=== PATIENT | male | born 1940 | race Caucasian/White ===

== ENCOUNTER 2017-01-09 09:05 | Day surgery (SDC) | payer MEDICARE, OTHER ==
--- NOTE | ~2017-01-09 | EGD ---
EGD REPORT [facility] [address] [address] NAME: NATTY CONTRERAS : [birth year] STATUS : REG [facility]#: [id number] AGE: 76 ADM/REG DATE : 01/09/17 MR#: [id number] REPORT SERV DATE: 01/09/17 DICTATED BY: FRANCESCO SKINNER DATE: 01/09/17 REPORT STATUS : Draft TRANSCRIBED BY: [employer] DATE: 01/09/17 [facility] Center Patient Name: Natty Contreras Date of : 1940 Attending MD: FRANCESCO SKINNER MD Procedure Date No Time: 01/09/2017 Procedure: Colonoscopy Indications: High risk colon cancer surveillance: Personal history of colonic polyps Referring MD: NASREEN MOFFETT MD Medicines: as per anesthesia Complications: No immediate complications. Procedure: Pre-Anesthesia Assessment: - ASA Grade Assessment: III - A patient with severe systemic disease. After I obtained informed consent, the scope was passed under direct vision. Throughout the procedure, the patient's blood pressure, pulse, and oxygen saturations were monitored continuously. The PCF [id number] was introduced through the anus and advanced to the cecum, identified by appendiceal orifice and ileocecal valve. The colonoscopy was performed without difficulty. The patient tolerated the procedure. The quality of the bowel preparation was adequate to identify polyps. Findings: The perianal and digital rectal examinations were normal. Internal hemorrhoids were found during endoscopy and were mild. Impression: - Internal hemorrhoids. Recommendation: - Repeat colonoscopy in 5 years for surveillance. Procedure Code(s): --- Professional --- 74011, Colonoscopy, flexible, proximal to splenic flexure; diagnostic, with or without collection of specimen(s) by brushing or washing, with or without colon decompression (separate procedure) Diagnosis Code(s): --- Professional --- K64.8, Other hemorrhoids Z86.010, Personal history of colonic polyps CPT copyright 2013 [employer] [place] [employer]. All rights reserved. EGD REPORT [facility] [address] [address] NAME: NATTY CONTRERAS : [birth year] STATUS : REG [facility]#: [id number] AGE: 76 ADM/REG DATE : 01/09/17 MR#: [id number] REPORT SERV DATE: 01/09/17 DICTATED BY: FRANCESCO SKINNER. DATE: 01/09/17 REPORT STATUS : Draft TRANSCRIBED BY: [employer] DATE: 01/09/17 The codes documented in this report are preliminary and upon medical insurance coder review may be revised to meet current compliance requirements. FRANCESCO SKINNER MD 01/09/2017 12:26 PM This report has been signed electronically. Number of Addenda: 0 Note Initiated On: 01/09/2017 12:01 PM Scope Withdrawal Time 0 hours 6 minutes 48 seconds [address] [id number]
[~2017-01-09 09:05] MED LIST: ACETAMI PO; ACTOPLUS M15 MG/850 PO; ALTA5 PO; ALTACE10 MG PO; ANTIBIOTICS; ASAB PO; CAFF PO; CODEINE PO; CRESTOR20 MG PO; EXCEDRIN MIGRA1 EAC1 PO; FISH-EPA1000 MG PO; FORTAMET1000 MG PO; GLUCOPHAGE1000 MG PO; GLUCOTRO10 PO; GLUCXL10 PO; HUMALOG SC; INDAPAMIDE1.25 MG PO; IRON325 MG PO; JANUVIA100 MG PO; LANTUS SC; LEVAQUIN5T PO; LIPITOR40 PO; LOZOLTAB PO; LUTEIN20 MG OR; MULTIVIT/MIN PO; MULTIVITAMI1 PO; NASAL SPRAY OTC NAS; NORV5 PO; PEPCID40 MG PO; PRESERVISION PO; PRILO PO; SODIUM BICARB PO; TRESIBA FL200 UNIT/1 SC; VALTESSA PO; VITD PO
[2017-01-09 09:43] LABS: BUN (BLOOD UREA NITROGEN) 26 MG/DL (6-23); CALCIUM, SERUM 9.2 MG/DL (8.5-10.4); CHLORIDE, SERUM 105 MMOL/L (96-112); CO2 (CARBON DIOXIDE) 26 MMOL/L (24-34); CREATININE 2.24 MG/DL (0.70-1.30); GFR AFRICAN AMERICAN 32 ML/MIN (>=60); GFR NON AFRICAN AMERICAN 28 ML/MIN (>=60); GLUCOSE, SERUM 163 MG/DL (60-99); POTASSIUM, SERUM 5.1 MMOL/L (3.5-5.3); SODIUM, SERUM 140 MMOL/L (135-148)
== END 2017-01-09 23:59 | disposition home health service (06) ==
LOC: DMU 09:05
PROVIDERS: Anesthesiology; Internal Medicine Gastroenterology
PROC: 0DJD8ZZ Inspection of Lower Intestinal Tract, Via Natural or Artificial Opening Endoscopic (ICD-10-PCS; principal; 2017-01-09 10:30)
DX: Z12.11 Encounter for screening for malignant neoplasm of colon (principal); K64.8 Other hemorrhoids; I10 Essential (primary) hypertension; E11.9 Type 2 diabetes mellitus without complications; G47.33 Obstructive sleep apnea (adult) (pediatric); D64.9 Anemia, unspecified; K21.9 Gastro-esophageal reflux disease without esophagitis; E78.00 Pure hypercholesterolemia, unspecified; Z86.010 Personal history of colon polyps; Z88.0 Allergy status to penicillin; Z88.5 Allergy status to narcotic agent; Z79.4 Long term (current) use of insulin; Z79.899 Other long term (current) drug therapy; Z86.73 Personal history of transient ischemic attack (TIA), and cerebral infarction without residual deficits; Z99.81 Dependence on supplemental oxygen; Z90.49 Acquired absence of other specified parts of digestive tract; Z98.890 Other specified postprocedural states
CPT/HCPCS: 80048